=== PATIENT | male | born 1985 | race Caucasian/White ===

== ENCOUNTER 2017-02-20 19:51 | Emergency (ER) | payer OTHER ==
[~2017-02-20] VITALS: Ht 167.6 cm; Wt 68.0 kg
--- NOTE | 2017-02-20 20:02 | NUR ---
KONG BAXTER AT BEDSIDE FOR EVAL.
--- NOTE | 2017-02-20 20:07 | NUR ---
PT AMBULATORY TO ER BED 10. C/O C HEST WALL PAIN AND DISCOMFORT X 2 DAYS. PT DENIES TRAUMA. GOWNED AND PLACED ON MONITOR. STABLE VITALS. AWAITING MD MCCANN.
--- NOTE | 2017-02-20 20:15 | NUR ---
REFUSING BLOOD DRAW. KONG OVALLES MADE AWARE.
[2017-02-20] MEDS ORDERED: KETOROLAC TROMETHAMINE INJ 60 MG/2 ML VIAL IM ONE (20:30)
[2017-02-20] MEDS ORDERED: IBUPROFEN 600 MG TABLET PO STA (20:41)
[2017-02-20] MEDS ORDERED: IBUPROFEN 600 MG TABLET PO ONE (20:43)
[2017-02-20 21:36] VITALS: BP 154/92
--- NOTE | 2017-02-20 21:36 | NUR ---
Patient discharged to home in stable condition. Written and verbal after care instructions given. Patient verbalizes understanding of instruction.
== END 2017-02-20 21:37 | disposition home or self-care (01) ==
LOC: ER 19:53
DX: K40.90 Unilateral inguinal hernia, without obstruction or gangrene, not specified as recurrent (principal); F17.200 Nicotine dependence, unspecified, uncomplicated
CPT/HCPCS: 71010; 93005; 99284; A4606; Z7610